=== PATIENT | male | born 1935 | race Caucasian/White ===

== ENCOUNTER 2017-12-29 15:47 | Inpatient (IN) | payer MEDICARE, OTHER ==
[~2017-12-29] VITALS: Ht 165.1 cm; Wt 71.8 kg
--- NOTE | ~2017-12-29 | MORECARE ---
CASE MANAGEMENT DISCHARGE SUMMARY PATIENT: JOSEPH PSOEY UNIT: [id number] ADM DATE: 12/29/17 AGE: 82 : 35 SEX: M ROOM/BED: D.2140 AUTHOR: JAMIE QUINTANILLA PHYSICIAN: REFERRING PHYSICIAN: RAJNI KIM MD DATE OF SERVICE: 01/03/18 Discharge Plan Patient Name: JOSEPH POSEY Facility: [facility]:[place] : 1935 Planned Disposition: Home Anticipated Discharge Date: 01/03/18 Discharge Date: Expected LOS: 5 Initial Reviewer: [email or web address] Initial Review Date: 01/03/2018 Generated: 01/03/18 5:53 pm Coverage Notice Reviewer: [email or web address] - Julius Raymond Notice Issued Date-Time: 01/03/2018 12:40 Notice Type: IM Discharge Notice Notice Delivered To: Patient Relationship to Patient: Education Counselor Name: Delivery Method: HAND - Hand Delivered Tressa Days: Prior Verbal Notification: Recipient Understood Notice: Yes Recipient Signature: Yes Med Rec Note Co-signed by Attending: Coverage Notice Comment: Patient Name: JOSEPH POSEY Page 12279 at 1653 All edits/amendments must be made on the electronic document DICTATION DATE: 01/03/181652 SHIRT HEMMER: KAY 01/03/181652 RPT#: [id number] DC DATE: STATUS: ADM IN [place] [address] [place] [address] END OF REPORT
--- NOTE | ~2017-12-29 | HEMODYNAMI ---
PATIENT:JOSEPH POSEY MEDICAL RECORD: [id number] : 35 LOCATION:[facility] D.2140 ADMISSION DATE: 12/29/17 Generatedon:12/30/20179:35 Patient name: JOSEPH POSEY Patient #: [id number] SSN: : 1935 Date of study: 12/30/2017 Page: Of Hemodynamic Procedure Report Patient Data Patient Demographics Procedure consent was obtained First Name: JOSEPH Gender: Male Last Name: KALPESH : 1935 Patient #: [id number] Age: 82 year(s) Race: Unknown Additional ID: [id number] Contact details [address]: [address] [place] [address] State: [place] City: [place] Zip code: [address] Admission Admission Data Admission Date: 12/29/2017 Admission Time: 15:47 Room #: D.2140 Procedure Procedure Types Cath Procedure Peripheral Cath Diagnostic Procedure 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 Peripheral Procedures Abd/Extremity Renal Renal Unilateral Procedure Description Procedure Date Procedure Date: 12/30/2017 Procedure Start Time: 9:05 Procedure Staff Name Function Carson Cordero MD Performing Physician Nereida Paul RT Front Desk Team Member Melodie Mahmood RN Nurse Aniurdh Juan RT Scrub Procedure Data Cath Procedure Fluoroscopy Diagnostic fluoroscopy Total fluoroscopy Time: 4.4 time: 4.4 min min Diagnostic fluoroscopy Total fluoroscopy dose: 869 dose: 869 mGy mGy Contrast Material Contrast Material Type Amount (ml) Isovue 300 45 Entry Location Entry Primary Successful Side Size Upsize Upsize Entry Closure Succ essful Closure Location (Fr) 1 (Fr) 2 (Fr) Remarks Device Remarks Femoral Right artery Femoral Right Angio-VIP artery 6Fr Diagnostic catheters Device Type Used For End Catheter Placement Cook CHG-B 5FR 65CM catheter ([id number]) Procedure Medications Medication Administration Route Dosage Oxygen etCO2 Nasal cannula 4 l/min Lidocaine 1% added to field 20 Heparin Flush Bag added to field 3 bags (1000units/500ml NS) Zofran I.V. 4 mg Versed I.V. 1 mg Fentanyl 25 mcg Fentanyl 25 mcg Hemodynamics Rest Heart Rate: 85 (bpm) Snapshots Pre Cath Intra NCS Post Cath Vital Signs Time Heart Resp SPO2 etCO2 NIBP (mmHg) Rhythm Pain Sedation Rate (ipm) (%) (mmHg) Status Level (bpm) 8:51:36 74 17 100 24.9 183/70(128) NSR 0 (11) 10(A) , No pain 8:56:10 84 24 100 25.7 182/69(134) NSR 0 (11) 10(A) , No pain 9:00:45 74 16 100 25.6 177/68(128) NSR 0 (11) 10(A) , No pain 9:05:15 73 16 100 21.9 165/72(116) NSR 0 (11) 10(A) , No pain 9:09:41 73 19 100 12.1 181/67(118) NSR 0 (11) 8(A) , No pain 9:14:14 72 18 98 25.7 172/67(122) NSR 0 (11) 8(A) , No pain 9:18:40 73 19 98 24.1 186/73(129) NSR 0 (11) 8(A) , No pain 9:23:12 74 15 97 32.4 160/70(126) NSR 0 (11) 8(A) , No pain 9:27:37 72 14 99 17.3 166/68(120) NSR 0 (11) 8(A) , No pain 9:32:03 73 21 100 25.6 146/68(109) NSR 0 (11) 8(A) , No pain Medications Time Medication Route Dose Verified Delivered Reason Notes Effec tiveness by by 8:59:03 Oxygen etCO2 4 Carson Sewell for Nasal l/min Gil Mahmood RN sedation cannula 8:59:16 Lidocaine 1% added 20ml Carson Byrd used for to vial Cordero Cordero procedure field MD [place] 8:59:35 Heparin Flush added 3 Carson Byrd used for Bag to bags Cordero Cordero procedure (1000units/500ml field MD [place] NS) 9:07:14 Zofran I.V. 4 mg Carson Sewell for Gil Mahmood RN nausea 9:07:40 Versed I.V. 1 mg Carson Mahmood RN sedation intermittently @ 9:11:11 9:08:31 Fentanyl 25 Carson Mahmood RN sedation intermittently @ 9:11:08 9:24:43 Fentanyl 25 Carson Mahmood RN sedation Procedure Log Time Note 8:34:28 Use device set IR Diagnostic 8:35:49 DOC .035 wire (P57831) opened to sterile field. 8:35:50 SHEATH 5FR [place] (WUE389) opened to sterile field. 8:35:51 PERCUTANEOUS ENTRY 19GA needle opened to sterile field. 8:35:52 Tegaderm 4 x 4 (1626W) opened to sterile field. 8:35:53 Sterile Angiographic Pack opened to sterile field. 8:35:54 Bag Decanter (2002S) opened to sterile field. 8:35:54 ACIST Manifold (18734) opened to sterile field. 8:35:55 ACIST Hand Control (71167) opened to sterile field. 8:35:56 ACIST Syringe (20784) opened to sterile field. 8:36:02 8:41:20 Time tracking: Call back (After hours or weekends) 8:42:01 Plan of Care:Hemodynamics will remain stable., Cardiac rhythm will remain stable., Comfort level will be maintained., Respiratory function will remain adequate., Patient/ family verbilizes understanding of procedure., Procedure tolerated without complication., Recovers from procedure without complications.. 8:42:16 Patient received from Med II to IR Alert and oriented. Tansferred to table in Supine position. 8:42:20 Signed procedure consent form obtained from patient. 8:42:36 H&P Date Dictated: 12/30/2017 Within 30 days and on chart., New H&P dictated by physician.. 8:42:41 Pre-procedure instructions explained to patient. 8:42:42 Pre-op teaching completed and patient verbalized understanding. 8:42:45 Family in waiting room. 8:42:48 Patient NPO since Midnight. 8:43:32 Is the patient allergic to Iodine/contrast media? No. 8:43:35 Is patient on blood thinner?Yes 8:43:37 Patient diabetic? No. 8:43:39 8:43:41 ----Pre-sedation anethsthesia assessment.---- 8:43:44 Previous problem with sedation/anesthesia? No ? 8:43:47 Snore? Yes 8:43:49 Sleep apnea? No 8:43:52 Deviated septum? No 8:43:54 Opens mouth fully? Yes 8:43:56 Sticks out tongue? Yes 8:43:59 Airway obstruction? No ? 8:44:05 Dentures? No ? 8:44:11 Pre procedure: right dorsailis pedis pulse Doppler 8:44:15 Pre procedure: right posterior tibial pulse Doppler 8:44:26 IV patent on arrival in left hand with D5/.45%NaCl at [facility]. 8:44:35 Right groin area was prepped with chlora-prep and draped in sterile fashion 8:44:38 8:50:15 ECG and BP/O2 sat monitors applied to patient. 8:50:17 Vital chart was started 8:50:19 Baseline sample Acquired. 8:50:20 Full Disclosure recording started 8:50:22 8:57:13 A Cook CHG-B 5FR 65CM catheter (Q51105) was advanced over the wire and used for . 8:59:03 Oxygen 4 l/min etCO2 Nasal cannula was administered by Melodie Mahmood RN; for sedation; 8:59:16 Lidocaine 1% 20ml vial added to field was administered by Carson Cordero MD; used for procedure; 8:59:18 Physician arrived 8:59:29 --------ALL STOP TIME OUT------ 8:59:30 Final Timeout: patient, procedure, and site verified with staff and physician. All members of the team are in agreement. 8:59:35 Heparin Flush Bag (1000units/500ml NS) 3 bags added to field was administered by Carson Cordero MD; used for procedure; 9:05:25 Procedure started. 9:05:31 Local anesthetic to right femoral artery with Lidocaine 1% by Carson Cordero MD.INITIAL ACCESS ONLY 9:07:14 Zofran 4 mg I.V. was administered by Melodie Mahmood RN; for nausea; 9:07:40 Versed 1 mg I.V. was administered by Melodie Mahmood RN; for sedation; 9:08:18 A sheath was inserted into the Right Femoral artery 9:08:31 Fentanyl 25 mcg was administered by Melodie Mahmood RN; for sedation; 9:11:08 Effectiveness of Fentanyl delivered @ 9:08:31 is: Dozing intermittently 9:11:11 Effectiveness of Versed delivered @ 9:07:40 is: Dozing intermittently 9:16:56 TRANSEND STEERABLE wire ([id number]) opened to sterile field. 9:17:11 RENEGADE HI-MALIK microcatheter ([id number]) opened to sterile field. 9:24:07 COIL HILAL 2.0-2 (P94404) opened to sterile field. 9:24:42 COIL Positioning Wire ([id number]) opened to sterile field. 9:24:43 Fentanyl 25 mcg was administered by Melodie Mahmood RN; for sedation; 9:29:01 ANGIOSEAL-VIP PLUS 6 FR opened to sterile field. 9:29:24 Sheath removed intact; hemostasis achieved with Angio-VIP 6Fr to the Right Femoral artery. 9:29:24 A sheath was inserted into the Right Femoral artery 9:31:59 Procedure ended.(Physican Out) 9:32:25 Fluoroscopy time 04.40 minutes. 9:32:30 Fluoroscopy dose: 869 mGy 9:32:30 Flurop Dose total: 869 9:32:35 Contrast amount:Isovue 300 45ml. 9:34:55 Procedure and supply charges have been captured, reviewed, submitted and are correct. 9:35:05 Post Procedure Pulses reassessed and unchanged 9:35:12 Report given to Med II. 9:35:37 Vital chart was stopped Device Usage Item Name Manufacture Quantity Catalog Hospital Part Current Minima l Lot# / Number Charge Number Stock Stock Serial# Code DOC .035 wire Cook Medical 1 Q17588 314577 649199 5 ([id number]) SHEATH 5FR Terumo 1 TBI811 388519 982642 783920 40 [place] (RSU434) PERCUTANEOUS Cook Medical 1 T57108 772621 565306 5 [id number] ENTRY 19GA needle Tegaderm 4 x 3M 1 1626W 178140 328998 088550 5 4 (1626W) Sterile Cardinal 1 [id number] 883036 245920 5 Angiographic Health Pack Bag Decanter Microtek 1 2001S 424266 74800 046809 5 (2001S) Medical Inc. ACIST Acist 1 35376 001144 493963 940958 5 Manifold Medical (27798) Systems Inc ACIST Hand Acist 1 28732 594458 932899 493924 5 Control Medical (31153) Systems Inc ACIST Syringe Acist 1 09192 443264 906823 245941 20 (74784) Medical Systems Inc Cook CHG-B Cook Medical 1 D34939 423216 395064 506813 5 5FR 65CM catheter (T04229) TRANSEND [place] 1 [id number] 109050 539565 5 STEERABLE Scientific wire ([id number]) RENEGADE [place] 1 [id number] 067900 270898 5 HI-MALIK Scientific microcatheter ([id number]) COIL HILAL Cook Medical 1 X88205 113304 878705 5 5401384 2.0-2 (A65109) COIL [place] 1 [id number] 505239 584884 377182 5 Positioning Scientific Wire ([id number]) ANGIOSEAL-VIP St Kumar 1 953597 560453 291692 5 [id number] PLUS 6 FR Signature Audit [place] Stage Time Signature Unsigned Intra-Procedure 12/30/2017 Nereida Paul 9:35:34 AM RT(R) [facility] [address] [place] [address]
--- NOTE | ~2017-12-29 | MORECARE ---
CASE MANAGEMENT DISCHARGE SUMMARY PATIENT: JOSEPH POSEY UNIT: [id number] ADM DATE: 12/29/17 AGE: 82 : 35 SEX: M ROOM/BED: D.2140 AUTHOR: DWIGHT,DOC PHYSICIAN: REFERRING PHYSICIAN: RAJNI KIM MD DATE OF SERVICE: 01/03/18 Discharge Plan Patient Name: JOSEPH POSEY Facility: [facility]:[place] : 1935 Planned Disposition: Home Anticipated Discharge Date: 01/03/18 Discharge Date: Expected LOS: 5 Initial Reviewer: [email or web address] Initial Review Date: 01/03/2018 Generated: 01/03/18 6:01 pm Comments DCP- Discharge Planning Updated by [email or web address]: Julius Raymond on 01/03/18 3:[address] Patient Name: JOSEPH POSEY Admission Status: Urgent Accout number: [id number] Admission Date: 12-29-2017 : 1935 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 PT REPORTS LIVING AT HOME INDEPENDENTLY WITH SPOUSE. PT HAS NO MEDICAL EQUIPMENT AND NO OUTSIDE SERVICES ASSISTING IN THE HOME. CM DISCUSSED AVAILABILITY OF HOME HEALTH, REHAB SERVICES AND MEDICAL EQUIPMENT. PT DENIES DISCHARGE NEEDS, REPORTS HIS SON WILL PICK HIM UP FOR DISCHARGE HOME. IMPORTANT MESSAGE FROM MEDICARE PROVIDED AND EXPLAINED. ASSOCIATE CHEMIST NURSE NOTIFIED. Slip Cover Estimator: Julius Raymond DCPIA - Discharge Planning Initial Assessment Updated by [email or web address]: Julius Raymond on 01/03/18 4:54 pm * Is the patient Alert and Oriented? Yes * How many steps to enter\exit or inside your home? * PCP DR. HARMON * Pharmacy [facility] IN [place] * Preadmission Environment Home with Family * ADLs Independent * Equipment None * Other Equipment [facility] - MEDICAL EQUIPMENT PROVIDER PREFERENCE * List name and contact numbers for known caregivers / representatives who currently or will assist patient after discharge: IRAIDA POSEY, SON, * Verbal permission to speak to the caregivers and representatives has been obtained from the patient. N/A * Community resources currently utilized Other * Please name any agencies selected above. OUTPATIENT DIALYSIS, [facility], 2:15PM, SON ASSISTS WITH TRANSPORT * Additional services required to return to the preadmission environment? No * Can the patient safely return to the preadmission environment? Yes * Has this patient been hospitalized within the prior 30 days at any hospital? No Coverage Notice Reviewer: [email or web address] Kleber Raymond Notice Issued Date-Time: 01/03/2018 12:40 Notice Type: IM Discharge Notice Notice Delivered To: Patient Relationship to Patient: Electrocardiograph Repairer Name: Delivery Method: HAND - Hand Delivered Tressa Days: Prior Verbal Notification: Recipient Understood Notice: Yes Recipient Signature: Yes Med Rec Note Co-signed by Attending: Coverage Notice Comment: Last DP export: 01/03/18 3:53 Patient Name: JOSEPH POSEY Page 56051 at 1702 All edits/amendments must be made on the electronic document DICTATION DATE: 01/03/181700 CRULLER MAKER MACHINE: KAY 01/03/181700 RPT#: [id number] DC DATE: STATUS: ADM IN [facility] [address] [place] [address] END OF REPORT
[2017-12-29] MEDS ORDERED: ZYLOPRIM100 MG PO (15:58)
[2017-12-29] MEDS ORDERED: PLAVIX75 MG PO (15:58)
[2017-12-29] MEDS ORDERED: ELIQUIS2.5 MG (15:59)
[2017-12-29] MEDS ORDERED: FLOMAX0.4 MG PO (16:00)
[2017-12-29] MEDS ORDERED: COREG6.25 MG PO (16:01)
[2017-12-29 17:17] VITALS: BP 162/64; BMI 26.8
[2017-12-29 17:43] LABS: BASOPHILS 0.1 % (0-2); EOSINOPHILS 0.1 % (0-7); HEMATOCRIT 27.4 % (42.0-54.0); HEMOGLOBIN 8.7 g/dL (13.5-17.5); IMMATURE GRANULOCYTES 0.1 % (0-5); LYMPHOCYTES 9.5 % (15-50); MCH 31.1 pg (26.0-34.0); MCHC 31.8 g/dL (31.0-37.0); MCV 97.9 fL (80.0-100.0); MEAN PLATELET VOLUME 11.9 fL (7.4-10.4); MONOCYTES 7.9 % (2-11); NEUTROPHILS 82.3 % (40-80); PLATELET COUNT 71 10x3/uL (130-400); RDW 14.3 % (11.5-14.5); WBC 7.9 10x3/uL (4.8-10.8)
[2017-12-29 18:08] LABS: CARBON DIOXIDE 30.8 mmol/L (21.0-32.0); POTASSIUM - SERUM 4.8 mmol/L (3.5-5.1)
[2017-12-29 18:29] LABS: PLATELET ESTIMATE DECREASED
[2017-12-29 21:08] VITALS: BP 98/53
[2017-12-30] VITALS (11 sets, daily range): BP systolic 119–183; BP diastolic 48–67; Ht 165.1 cm; Wt 71.8 kg
[2017-12-30] MEDS ORDERED: COREG25 MG (07:33)
[2017-12-30] MEDS ORDERED: LIPITOR20 MG PO (07:34)
[2017-12-30] MEDS ORDERED: AMIODARONE HCL200 MG PO (07:34)
[2017-12-30] MEDS ORDERED: ZANTAC300 MG PO (07:34)
[2017-12-30 08:31] LABS: BASOPHILS 0.1 % (0-2); EOSINOPHILS 0 % (0-7); HEMATOCRIT 24.1 % (42.0-54.0); HEMOGLOBIN 7.8 g/dL (13.5-17.5); IMMATURE GRANULOCYTES 0.3 % (0-5); LYMPHOCYTES 5.9 % (15-50); MCH 31.5 pg (26.0-34.0); MCHC 32.4 g/dL (31.0-37.0); MCV 97.2 fL (80.0-100.0); MEAN PLATELET VOLUME 11.6 fL (7.4-10.4); MONOCYTES 9.8 % (2-11); NEUTROPHILS 83.9 % (40-80); PLATELET COUNT 81 10x3/uL (130-400); RBC 2.48 10x6/uL (4.20-6.10); RDW 14.7 % (11.5-14.5)
[2017-12-30 08:39] LABS: WBC 11.2 10x3/uL (4.8-10.8)
[2017-12-30 08:42] LABS: CALCIUM 9.3 mg/dL (8.5-10.1); CARBON DIOXIDE 27.3 mmol/L (21.0-32.0); CREATININE - SERUM 8.1 mg/dL (0.6-1.3); POTASSIUM - SERUM 5.3 mmol/L (3.5-5.1)
[2017-12-30 08:44] LABS: INR 1.69 (0.85-1.17); PROTIME 19.6 SECONDS (11.6-15.0)
[2017-12-30 11:44] LABS: ALBUMIN 3.1 g/dL (3.4-5.0); BILIRUBIN - DIRECT 0.16 mg/dL (0.00-0.30); BILIRUBIN - INDIRECT 0.44 mg/dL (0.00-1.00); BILIRUBIN - TOTAL 0.6 mg/dL (0.2-1.3); PROTEIN - SERUM 6.4 g/dL (6.4-8.2)
[2017-12-30 12:03] LABS: HEMATOCRIT 20.8 % (42.0-54.0)
[2017-12-30 12:06] LABS: HEMOGLOBIN 6.9 g/dL (13.5-17.5)
[2017-12-30 16:12] LABS: HEMATOCRIT 21.6 % (42.0-54.0)
[2017-12-30 16:18] LABS: HEMOGLOBIN 7.1 g/dL (13.5-17.5)
[2017-12-30 23:26] LABS: HEMATOCRIT 26.6 % (42.0-54.0); HEMOGLOBIN 8.9 g/dL (13.5-17.5)
[2017-12-31] VITALS: BP 186/66
[2017-12-31 04:00] VITALS: BP 168/60
[2017-12-31 06:14] LABS: BASOPHILS 0.1 % (0-2); EOSINOPHILS 0 % (0-7); HEMATOCRIT 28.4 % (42.0-54.0); HEMOGLOBIN 9.5 g/dL (13.5-17.5); IMMATURE GRANULOCYTES 0.3 % (0-5); LYMPHOCYTES 4.3 % (15-50); MCHC 33.5 g/dL (31.0-37.0); MCV 95.6 fL (80.0-100.0); MEAN PLATELET VOLUME 11.6 fL (7.4-10.4); MONOCYTES 14.1 % (2-11); NEUTROPHILS 81.2 % (40-80); PLATELET COUNT 83 10x3/uL (130-400); RBC 2.97 10x6/uL (4.20-6.10); RDW 15.2 % (11.5-14.5)
[2017-12-31 06:20] LABS: WBC 14.2 10x3/uL (4.8-10.8)
[2017-12-31 06:27] LABS: INR 1.6 (0.85-1.17); PROTIME 18.7 SECONDS (11.6-15.0)
[2017-12-31 06:32] LABS: ALBUMIN 3.3 g/dL (3.4-5.0); ANION GAP 13.1 mmol/L (8-16); BILIRUBIN - TOTAL 1.01 mg/dL (0.2-1.3); CALCIUM 8.9 mg/dL (8.5-10.1); CARBON DIOXIDE 30.4 mmol/L (21.0-32.0); CREATININE - SERUM 6.2 mg/dL (0.6-1.3); PROTEIN - SERUM 7.1 g/dL (6.4-8.2)
[2017-12-31 06:35] LABS: POTASSIUM - SERUM 4.5 mmol/L (3.5-5.1)
[2017-12-31 09:24] VITALS: BP 155/69
[2017-12-31 10:06] LABS: HEMATOCRIT 26.2 % (42.0-54.0); HEMOGLOBIN 8.7 g/dL (13.5-17.5)
[2017-12-31 13:28] VITALS: BP 187/63
[2017-12-31 16:47] VITALS: BP 184/69
[2017-12-31 17:48] LABS: HEMATOCRIT 24.6 % (42.0-54.0); HEMOGLOBIN 8.3 g/dL (13.5-17.5)
[2017-12-31 20:00] VITALS: BP 111/46
[2017-12-31 22:30] LABS: HEMATOCRIT 23.9 % (42.0-54.0); HEMOGLOBIN 7.9 g/dL (13.5-17.5)
[2018-01-01 04:00] VITALS: BP 124/44
[2018-01-01 05:42] LABS: BASOPHILS 0.1 % (0-2); EOSINOPHILS 0 % (0-7); HEMATOCRIT 23.6 % (42.0-54.0); HEMOGLOBIN 7.8 g/dL (13.5-17.5); IMMATURE GRANULOCYTES 0.3 % (0-5); LYMPHOCYTES 5.7 % (15-50); MCH 31.6 pg (26.0-34.0); MCHC 33.1 g/dL (31.0-37.0); MCV 95.5 fL (80.0-100.0); MONOCYTES 14.6 % (2-11); NEUTROPHILS 79.3 % (40-80); PLATELET COUNT 78 10x3/uL (130-400); RBC 2.47 10x6/uL (4.20-6.10); RDW 14.7 % (11.5-14.5); WBC 10.9 10x3/uL (4.8-10.8)
[2018-01-01 06:14] LABS: ALBUMIN 2.5 g/dL (3.4-5.0); ANION GAP 13.8 mmol/L (8-16); BILIRUBIN - TOTAL 0.63 mg/dL (0.2-1.3); CARBON DIOXIDE 27.8 mmol/L (21.0-32.0); POTASSIUM - SERUM 4.6 mmol/L (3.5-5.1); PROTEIN - SERUM 6.4 g/dL (6.4-8.2)
[2018-01-01 06:23] LABS: PROTIME 21.8 SECONDS (11.6-15.0)
[2018-01-01 06:27] LABS: INR 1.93 (0.85-1.17)
[2018-01-01 16:39] LABS: HEMATOCRIT 29.4 % (42.0-54.0); HEMOGLOBIN 10.2 g/dL (13.5-17.5)
[2018-01-01 20:00] VITALS: BP 121/37
[2018-01-01 22:46] LABS: HEMATOCRIT 26.4 % (42.0-54.0); HEMOGLOBIN 9.1 g/dL (13.5-17.5)
[2018-01-02 04:00] VITALS: BP 114/37
[2018-01-02 06:05] LABS: BASOPHILS 0.1 % (0-2); EOSINOPHILS 0.1 % (0-7); HEMOGLOBIN 9.1 g/dL (13.5-17.5); IMMATURE GRANULOCYTES 0.3 % (0-5); LYMPHOCYTES 9.4 % (15-50); MCH 31.2 pg (26.0-34.0); MCHC 33.7 g/dL (31.0-37.0); MEAN PLATELET VOLUME 11.7 fL (7.4-10.4); MONOCYTES 16.1 % (2-11); PLATELET COUNT 88 10x3/uL (130-400); RBC 2.92 10x6/uL (4.20-6.10); RDW 16.1 % (11.5-14.5)
[2018-01-02 06:30] LABS: MCV 92.5 fL (80.0-100.0); WBC 6.8 10x3/uL (4.8-10.8)
[2018-01-02 06:33] LABS: ALBUMIN 2.2 g/dL (3.4-5.0); ANION GAP 11.2 mmol/L (8-16); BILIRUBIN - TOTAL 0.86 mg/dL (0.2-1.3); CALCIUM 7.7 mg/dL (8.5-10.1); CARBON DIOXIDE 31.5 mmol/L (21.0-32.0); CREATININE - SERUM 5.6 mg/dL (0.6-1.3); POTASSIUM - SERUM 3.7 mmol/L (3.5-5.1); PROTEIN - SERUM 5.8 g/dL (6.4-8.2)
[2018-01-02 06:58] LABS: INR 1.71 (0.85-1.17); PROTIME 19.7 SECONDS (11.6-15.0)
[2018-01-02 08:47] VITALS: BP 123/45
[2018-01-02 10:20] LABS: HEPATITIS C ANTIBODY <0.1 S/CO RAT (0.0-0.9)
[2018-01-02 11:35] LABS: HEMATOCRIT 28.1 % (42.0-54.0); HEMOGLOBIN 9.5 g/dL (13.5-17.5)
[2018-01-02 11:48] VITALS: BP 113/41
[2018-01-02 14:58] VITALS: BP 117/43
[2018-01-02 16:45] LABS: HEMATOCRIT 28.2 % (42.0-54.0); HEMOGLOBIN 9.6 g/dL (13.5-17.5)
[2018-01-02 17:07] VITALS: BP 141/69
[2018-01-02 21:41] VITALS: BP 131/99
[2018-01-02 22:28] LABS: HEMATOCRIT 27.3 % (42.0-54.0); HEMOGLOBIN 9.3 g/dL (13.5-17.5)
[2018-01-03 01:16] VITALS: BP 120/52
[2018-01-03 05:50] VITALS: BP 139/65
[2018-01-03 09:02] LABS: BASOPHILS 0 % (0-2); EOSINOPHILS 0.8 % (0-7); HEMATOCRIT 27.3 % (42.0-54.0); HEMOGLOBIN 9.4 g/dL (13.5-17.5); LYMPHOCYTES 10.6 % (15-50); MCH 31.9 pg (26.0-34.0); MCHC 34.4 g/dL (31.0-37.0); MCV 92.5 fL (80.0-100.0); MEAN PLATELET VOLUME 11.3 fL (7.4-10.4); MONOCYTES 13.3 % (2-11); NEUTROPHILS 75.3 % (40-80); RBC 2.95 10x6/uL (4.20-6.10); RDW 14.9 % (11.5-14.5)
[2018-01-03 09:03] LABS: PLATELET COUNT 109 10x3/uL (130-400)
[2018-01-03 09:13] LABS: INR 1.47 (0.85-1.17); PROTIME 17.5 SECONDS (11.6-15.0)
[2018-01-03 09:17] VITALS: BP 126/66
[2018-01-03 09:18] LABS: ALBUMIN 2.4 g/dL (3.4-5.0); ANION GAP 11.8 mmol/L (8-16); BILIRUBIN - TOTAL 0.6 mg/dL (0.2-1.3); CALCIUM 8.4 mg/dL (8.5-10.1); CARBON DIOXIDE 28.1 mmol/L (21.0-32.0); PROTEIN - SERUM 6.7 g/dL (6.4-8.2)
[2018-01-03 09:20] LABS: CREATININE - SERUM 7.6 mg/dL (0.6-1.3)
[2018-01-03 09:25] LABS: POTASSIUM - SERUM 2.9 mmol/L (3.5-5.1)
[2018-01-03] MEDS ORDERED: NORVASC10 MG PO (12:21)
== END 2018-01-03 17:08 | disposition home or self-care (01) | DRG 673 ==
LOC: D.M2 15:47
PROVIDERS: Internal Medicine Nephrology; Specialist; Urology
PROC: 04L93DZ Occlusion of Right Renal Artery with Intraluminal Device, Percutaneous Approach (ICD-10-PCS; principal; 2017-12-30 09:05)
DX: N28.89 Other specified disorders of kidney and ureter (principal); G93.41 Metabolic encephalopathy; K66.1 Hemoperitoneum; I12.0 Hypertensive chronic kidney disease with stage 5 chronic kidney disease or end stage renal disease; D62 Acute posthemorrhagic anemia; E87.1 Hypo-osmolality and hyponatremia; D46.9 Myelodysplastic syndrome, unspecified; N18.6 End stage renal disease; Z99.2 Dependence on renal dialysis; D63.1 Anemia in chronic kidney disease; I25.10 Atherosclerotic heart disease of native coronary artery without angina pectoris; I48.91 Unspecified atrial fibrillation; E87.5 Hyperkalemia; R91.1 Solitary pulmonary nodule; Z87.891 Personal history of nicotine dependence

== ENCOUNTER 2018-03-15 06:48 | Outpatient (CLI) | payer MEDICARE, OTHER ==
[~2018-03-15] VITALS: Ht 165.1 cm; Wt 72.7 kg
[~2018-03-15 06:48] MED LIST: AMIODARONE HCL200 MG PO; COREG25 MG; COREG6.25 MG PO; ELIQUIS2.5 MG; FLOMAX0.4 MG PO; LIPITOR20 MG PO; NORVASC10 MG PO; PLAVIX75 MG PO; ZANTAC300 MG PO; ZYLOPRIM100 MG PO
[2018-03-15 07:09] LABS: BASOPHILS 0.6 % (0-2); EOSINOPHILS 2.9 % (0-7); HEMATOCRIT 30.9 % (42.0-54.0); HEMOGLOBIN 9.7 g/dL (13.5-17.5); IMMATURE GRANULOCYTES 0.3 % (0-5); LYMPHOCYTES 23.2 % (15-50); MCH 31.6 pg (26.0-34.0); MCHC 31.4 g/dL (31.0-37.0); MCV 100.7 fL (80.0-100.0); MEAN PLATELET VOLUME 11.2 fL (7.4-10.4); MONOCYTES 16.5 % (2-11); NEUTROPHILS 56.5 % (40-80); PLATELET COUNT 104 10x3/uL (130-400); RBC 3.07 10x6/uL (4.20-6.10); RDW 15.1 % (11.5-14.5); WBC 3.4 10x3/uL (4.8-10.8)
[2018-03-15 07:20] LABS: CALCIUM 9.3 mg/dL (8.5-10.1); CARBON DIOXIDE 32.5 mmol/L (21.0-32.0); CREATININE - SERUM 4.4 mg/dL (0.6-1.3); POTASSIUM - SERUM 3.5 mmol/L (3.5-5.1)
[2018-03-15 07:22] LABS: APTT 41.3 SECONDS (22.8-39.4)
[2018-03-15 07:54] LABS: INR 1.51 (0.85-1.17); PROTIME 17.6 SECONDS (11.6-15.0)
[2018-03-15 08:17] VITALS: BP 158/53; Ht 165.1 cm; Wt 72.7 kg
[2018-03-15] MEDS ORDERED: ZOFRAN4 MG PO (08:40)
--- NOTE | 2018-03-15 09:20 | NUR ---
PATIENT HAD A CAT SCAN DONE TODAY, HE WAS SCHEDULED FOR A LIVER BIOPSY WELL. MD DID NOT DO THE BIOPSY THE PATIENTS BLOOD WAS TO THIN. I WAS INSTRUCTED TO REMOVE THE PATIENTS IV, PATIENT WAS NOW FREE TO GO HOME. MV
== END 2018-03-15 09:33 ==
LOC: D.SP 06:48 → D.MRI 07:00 → D.SP 09:33
PROVIDERS: Specialist
DX: C64.9 Malignant neoplasm of unspecified kidney, except renal pelvis (principal); Z53.9 Procedure and treatment not carried out, unspecified reason; Z01.812 Encounter for preprocedural laboratory examination